=== PATIENT | female | born 1990 | race Caucasian/White ===

== ENCOUNTER 2018-04-20 09:16 | Emergency (ER) | payer BC ==
[2018-04-20 09:30] VITALS: TEMP 98.2
[2018-04-20] MEDS ORDERED: SODIUM CHLORIDE 0.9% 2,000 ML IV STA (09:49)
[2018-04-20] MEDS ORDERED: ONDANSETRON 4 MG/2 ML VIAL IVP STA (09:49)
[2018-04-20 10:42] LABS: Basophils % (A) 0 %; Eosinophils # (A) 0.2 k/uL (0-0.7); Eosinophils % (A) 1 %; HCT 44.5 % (34.0-46.0); Lymphocytes # (A) 0.4 k/uL (1.0-4.8); Lymphocytes % (A) 3 %; MCHC 33.8 g/dL (31.0-37.0); MCV 88.9 fL (80.0-100.0); Mean Platelet Volume 6.4; Monocytes # (A) 0.3 k/uL (0-1.0); Monocytes % (A) 2 %; Neutrophils # (A) 13.8 k/uL (1.3-7.7); Neutrophils % (A) 93 %; Platelet Count 252 k/uL (150-450); RBC 5.01 m/uL (3.80-5.40); RDW 13.3 % (11.5-15.5); WBC 14.8 k/uL (3.8-10.6)
[2018-04-20] MEDS ORDERED: METOCLOPRAMIDE 5 MG/ML 2 ML VIAL IVP STA (10:46)
[2018-04-20] MEDS ORDERED: diphenhydrAMINE 50 MG/ML 1 ML VIAL IVP STA (10:46)
[2018-04-20 10:56] LABS: ALT 33 U/L (9-52); AST 26 U/L (14-36); Albumin 3.8 g/dL (3.5-5.0); Alkaline Phosphatase 23 U/L (38-126); Amylase 37 U/L (30-110); Anion Gap 9 mmol/L; Blood Urea Nitrogen 13 mg/dL (7-17); Calcium 8.9 mg/dL (8.4-10.2); Carbon Dioxide 22 mmol/L (22-30); Chloride 107 mmol/L (98-107); Glucose 95 mg/dL (74-99); Lipase 66 U/L (23-300); Potassium 4.8 mmol/L (3.5-5.1); Sodium 138 mmol/L (137-145); Total Bilirubin 0.7 mg/dL (0.2-1.3); Total Protein 6.5 g/dL (6.3-8.2)
[2018-04-20 10:57] LABS: Appearance,Urine Clear (Clear); Bilirubin,Urine Negative (Negative); Blood,Urine Negative (Negative); Color,Urine Yellow; Glucose,Urine (UA) Negative (Negative); Ketones,Urine Negative (Negative); Leukocyte Esterase,Urine Negative (Negative); Nitrite,Urine Negative (Negative); Protein,Urine Negative (Negative); Specific Gravity,Urine 1.015 (1.001-1.035); Urobilinogen,Urine <2.0 mg/dL (<2.0)
[2018-04-20 11:04] VITALS: BP 118/78; PULSE 80; RESP 18
--- NOTE | 2018-04-20 11:07 | ED ---
Nausea/Vomiting/Diarrhea HPI - General Chief complaint: Nausea/Vomiting/Diarrhea Stated complaint: vomiting Time Seen by Provider: 04/20/18 09:49 Source: patient, RN notes reviewed Mode of arrival: ambulatory Limitations: no limitations - History of Present Illness Initial comments: 28-year-old female presents emergency Department with chief complaint of nausea vomiting. Patient that she woke up this morning nearly had to vomit. Patient complains of upper abdominal pain secondary to her vomiting. Patient also cleanser headache that started after the vomiting. Patient any chest pain or shortness of breath. Patient denies any contacts with some her symptoms no diarrhea at this time no dysuria no hematuria. Denies any chance . - Related Data Previous Rx's Medication Instructions Recorded Ondansetron Odt [Zofran Odt] 4 mg PO Q8HR PRN #10 tab 04/20/18 Allergies Allergy/AdvReac Type Severity Reaction Status Date / Time hydromorphone [From Dilaudid] AdvReac Vomiting Verified 04/20/18 09:30 Review of Systems ROS Statement: Those systems with pertinent positive or pertinent negative responses have been documented in the HPI. ROS Other: All systems not noted in ROS Statement are negative. Past Medical History Additional Past Medical History / Comment(s): OCD History of Any Multi-Drug Resistant Organisms: None Reported Past Surgical History: Breast Surgery, Orthopedic Surgery Additional Past Surgical History / Comment(s): vaginal tumor removal, breast tumor removal Past Psychological History: Anxiety, Depression Smoking Status: Never smoker Past Alcohol Use History: Occasional Past Drug Use History: None Reported General Exam Limitations: no limitations General appearance: alert, in no apparent distress Head exam: Present: atraumatic, normocephalic, normal inspection Eye exam: Present: normal appearance, PERRL, EOMI. Absent: scleral icterus, conjunctival injection, periorbital swelling Respiratory exam: Present: normal lung sounds bilaterally. Absent: respiratory distress, wheezes, rales, rhonchi, stridor Cardiovascular Exam: Present: regular rate, normal rhythm, normal heart sounds. Absent: systolic murmur, diastolic murmur, rubs, gallop, clicks GI/Abdominal exam: Present: soft, tenderness (Epigastric), normal bowel sounds. Absent: distended, guarding, rebound, rigid Back exam: Absent: CVA tenderness (R), CVA tenderness (L) Skin exam: Present: warm, dry, intact, normal color. Absent: rash Course Vital Signs 04/20/18 04/20/18 09:27 11:03 Temperature 98.2 F Pulse Rate 115 H 80 Respiratory 20 18 Rate Blood Pressure 110/68 118/78 O2 Sat by Pulse 98 99 Oximetry Medical Decision Making - Medical Decision Making 28-year-old female presented for nausea vomiting. Patient was hydrated, given antiemetics and symptoms have improved. Patient states that her abdominal pain has resolved. Patient updated on lab results. Return parameters were discussed - Lab Data Result diagrams: 04/20/18 10:00 04/20/18 10:00 Lab Results 04/20/18 04/20/18 04/20/18 Range/Units 10:00 10:00 10:00 WBC 14.8 H (3.8-10.6) k/uL RBC 5.01 (3.80-5.40) m/uL Hgb 15.0 (11.4-16.0) gm/dL Hct 44.5 (34.0-46.0) % MCV 88.9 (80.0-100.0) fL MCH 30.0 (25.0-35.0) pg MCHC 33.8 (31.0-37.0) g/dL RDW 13.3 (11.5-15.5) % Plt Count 252 (150-450) k/uL Neutrophils % 93 % Lymphocytes % 3 % Monocytes % 2 % Eosinophils % 1 % Basophils % 0 % Neutrophils # 13.8 H (1.3-7.7) k/uL Lymphocytes # 0.4 L (1.0-4.8) k/uL Monocytes # 0.3 (0-1.0) k/uL Eosinophils # 0.2 (0-0.7) k/uL Basophils # 0.0 (0-0.2) k/uL Sodium 138 (137-145) mmol/L Potassium 4.8 (3.5-5.1) mmol/L Chloride 107 (98-107) mmol/L Carbon Dioxide 22 (22-30) mmol/L Anion Gap 9 mmol/L BUN 13 (7-17) mg/dL Creatinine 0.73 (0.52-1.04) mg/dL Est GFR (CKD-EPI)AfAm >90 (>60 ml/min/1.73 sqM) Est GFR (CKD-EPI)NonAf >90 (>60 ml/min/1.73 sqM) Glucose 95 (74-99) mg/dL Calcium 8.9 (8.4-10.2) mg/dL Total Bilirubin 0.7 (0.2-1.3) mg/dL AST 26 (14-36) U/L ALT 33 (9-52) U/L Alkaline Phosphatase 23 L (38-126) U/L Total Protein 6.5 (6.3-8.2) g/dL Albumin 3.8 (3.5-5.0) g/dL Amylase 37 (30-110) U/L Lipase 66 (23-300) U/L Urine Color Yellow Urine Appearance Clear (Clear) Urine pH 8.0 (5.0-8.0) Ur Specific [place] 1.015 (1.001-1.035) Urine Protein Negative (Negative) Urine Glucose (UA) Negative (Negative) Urine Ketones Negative (Negative) Urine Blood Negative (Negative) Urine Nitrite Negative (Negative) Urine Bilirubin Negative (Negative) Urine Urobilinogen <2.0 (<2.0) mg/dL Ur Leukocyte Esterase Negative (Negative) Urine HCG, Qual (Not Detectd) 04/20/18 Range/Units 10:00 WBC (3.8-10.6) k/uL RBC (3.80-5.40) m/uL Hgb (11.4-16.0) gm/dL Hct (34.0-46.0) % MCV (80.0-100.0) fL MCH (25.0-35.0) pg MCHC (31.0-37.0) g/dL RDW (11.5-15.5) % Plt Count (150-450) k/uL Neutrophils % % Lymphocytes % % Monocytes % % Eosinophils % % Basophils % % Neutrophils # (1.3-7.7) k/uL Lymphocytes # (1.0-4.8) k/uL Monocytes # (0-1.0) k/uL Eosinophils # (0-0.7) k/uL Basophils # (0-0.2) k/uL Sodium (137-145) mmol/L Potassium (3.5-5.1) mmol/L Chloride (98-107) mmol/L Carbon Dioxide (22-30) mmol/L Anion Gap mmol/L BUN (7-17) mg/dL Creatinine (0.52-1.04) mg/dL Est GFR (CKD-EPI)AfAm (>60 ml/min/1.73 sqM) Est GFR (CKD-EPI)NonAf (>60 ml/min/1.73 sqM) Glucose (74-99) mg/dL Calcium (8.4-10.2) mg/dL Total Bilirubin (0.2-1.3) mg/dL AST (14-36) U/L ALT (9-52) U/L Alkaline Phosphatase (38-126) U/L Total Protein (6.3-8.2) g/dL Albumin (3.5-5.0) g/dL Amylase (30-110) U/L Lipase (23-300) U/L Urine Color Urine Appearance (Clear) Urine pH (5.0-8.0) Ur Specific [place] (1.001-1.035) Urine Protein (Negative) Urine Glucose (UA) (Negative) Urine Ketones (Negative) Urine Blood (Negative) Urine Nitrite (Negative) Urine Bilirubin (Negative) Urine Urobilinogen (<2.0) mg/dL Ur Leukocyte Esterase (Negative) Urine HCG, Qual Not Detected (Not Detectd) Disposition Clinical Impression: Gastroenteritis Disposition: HOME SELF-CARE Condition: Stable Instructions (If sedation given, give patient instructions): Acute Nausea and Vomiting (ED) Additional Instructions: Please return to the Emergency Department if symptoms worsen or any other co ncerns. Prescriptions: Ondansetron Odt [Zofran Odt] 4 mg PO Q8HR PRN #10 tab PRN Reason: Nausea Is patient prescribed a controlled substance at d/c from ED?: No Referrals: Carlo Diaz MD [Primary Care Provider] - 1-2 days Time of Disposition: 11:33
== END 2018-04-20 12:03 | disposition home or self-care (01) ==
LOC: EC 09:16
DX: K52.9 Noninfective gastroenteritis and colitis, unspecified (principal); Z88.5 Allergy status to narcotic agent
CPT/HCPCS: 36415; 80053; 82150; 83690; 85025; 81003; 81025; 99284; 96374; 96375 ×2; 96361 ×2; J1200; J2765; J2405

== ENCOUNTER 2018-11-22 20:49 | Inpatient (IN) | payer BC ==
[2018-11-22 21:55] LABS: Amphetamine Screen,Urine Not Detected (NotDetected); Barbiturate Screen,Urine Not Detected (NotDetected); Benzodiazepines Screen,Urine Detected (NotDetected); Cocaine Screen,Urine Not Detected (NotDetected); Methadone Screen, Urine Not Detected (NotDetected); Opiate Screen,Urine Not Detected (NotDetected); Oxycodone Screen, Urine Not Detected (NotDetected); Phencyclidine Screen,Urine Not Detected (NotDetected); Tricyclic Antidepressant,Urine Not Detected (NotDetected); Urn Cannabinoid Scrn Not Detected (NotDetected)
[2018-11-22] MEDS ORDERED: ALPRAZolam 1 MG TAB PO STA (21:55)
--- NOTE | 2018-11-22 21:56 | ED ---
General Adult HPI - General Chief complaint: Psychiatric Symptoms Stated complaint: Mental health Time Seen by Provider: 11/22/18 21:09 Source: patient Mode of arrival: ambulatory Limitations: no limitations - History of Present Illness Initial comments: Dictation was produced using [employer] dictation software. please excuse any grammatical, word or spelling errors. Chief Complaint: 28-year-old female with extensive psychiatric history presents with depression and suicidal ideation. History of Present Illness: 28-year-old female with extensive history of depression since the age of 6 presents with depression. Patient states she's been having worsening depression over the last several days. Patient states she suicidal however reports that she would never harm herself because she sees how it can affect peoples families. Patient denies any medical complaints at this time. Patient states she has been seen by multiple psychiatrists and has undergone extensive therapy for her depression. She states that she's been taken off her medications. She is a long history of multiple medications. Last treatment was Cymbalta however she was taken off because it was felt that her depression acutely worsened. Patient denies any chance of . She states she is depressed however for no particular reason. The ROS documented in this emergency department record has been reviewed and confirmed by me. Those systems with pertinent positive or negative responses have been documented in the HPI. All other systems are other negative and/or noncontributory. PHYSICAL EXAM: General Impression: Alert and oriented x3, not in acute distress HEENT: Normocephalic atraumatic, extra-ocular movements intact, pupils equal and reactive to light bilaterally, mucous membranes moist. Cardiovascular: Heart regular rate and rhythm, S1&S2 audible, no murmurs, rubs or gallops Chest: Lungs clear to auscultation bilaterally, no rhonchi, no wheeze, no rales Abdomen: Bowel sounds present, abdomen soft, non-tender, non-distended, no organomegaly Musculoskeletal: Pulses present and equal in all extremities, no peripheral e lin Motor: no focal deficits noted Neurological: CN II-XII grossly intact, no focal motor or sensory deficits noted Skin: Intact with no visualized rashes Psych: Tearful ED course: 28-year-old female presents with chief complaint of acute depression. Son's upon arrival are within acceptable limits. Patient states she currently feels anxious. She suicidal however denies any significant intent. She has no medical complaints at this time. Patient medically cleared for EPS evaluation. She feels acutely anxious at the moment. Patient given by mouth alprazolam.Urine hCG is negative. Patient is medically cleared for EPS evaluation. EPS evaluated patient and recommended inpatient admission. - Related Data Home Medications Medication Instructions Recorded Confirmed Cholecalciferol [Vitamin D3 (25 5,000 unit PO DAILY 11/22/18 11/23/18 Mcg = 1000 Iu)] Citalopram Hydrobromide [CeleXA] 30 mg PO DAILY 11/22/18 11/23/18 Gabapentin [Neurontin] 600 mg PO DAILY@1200 11/22/18 11/23/18 Gabapentin [Neurontin] 900 mg PO BID 11/22/18 11/23/18 Hum Nutrition B12 Turbo 1 tab PO DAILY 11/22/18 11/23/18 Hum Nutrition Base Control 1 tab PO DAILY 11/22/18 11/23/18 Hum Nutrition Daily Cleanse 2 tab PO DAILY 11/22/18 11/23/18 Hum Nutrition [employer] 2 tab PO DAILY 11/22/18 11/23/18 Levothyroxine Sodium [Synthroid] 125 mcg PO DAILY 11/22/18 11/23/18 Prochlorperazine [Compazine] 5 mg PO Q8HR PRN 11/22/18 11/23/18 ZOLMitriptan 5 - 10 mg PO DAILY PRN 11/22/18 11/23/18 busPIRone HCl [Buspar] 5 mg PO DAILY 11/22/18 11/23/18 Allergies Allergy/AdvReac Type Severity Reaction Status Date / Time shellfish derived [Shellfish] Allergy Swelling Verified 11/23/18 01:36 hydromorphone [From Dilaudid] AdvReac Vomiting Verified 11/23/18 01:36 Review of Systems ROS Statement: Those systems with pertinent positive or pertinent negative responses have been documented in the HPI. ROS Other: All systems not noted in ROS Statement are negative. Past Medical History Additional Past Medical History / Comment(s): OCD History of Any Multi-Drug Resistant Organisms: None Reported Past Surgical History: Breast Surgery, Orthopedic Surgery Additional Past Surgical History / Comment(s): vaginal tumor removal, breast tumor removal Past Psychological History: Anxiety, Depression Smoking Status: Never smoker Past Alcohol Use History: Occasional Past Drug Use History: None Reported General Exam Limitations: no limitations Course Vital Signs 11/22/18 20:59 Temperature 97.9 F Pulse Rate 73 Respiratory 18 Rate Blood Pressure 118/85 O2 Sat by Pulse 98 Oximetry Medical Decision Making - Lab Data Lab Results 11/22/18 11/22/18 Range/Units 21:11 21:11 Urine HCG, Qual Not Detected (Not Detectd) Urine Opiates Screen Not Detected (NotDetected) Ur Oxycodone Screen Not Detected (NotDetected) Urine Methadone Screen Not Detected (NotDetected) Ur Propoxyphene Screen Not Detected (NotDetected) Ur Barbiturates Screen Not Detected (NotDetected) U Tricyclic Antidepress Not Detected (NotDetected) Ur Phencyclidine Scrn Not Detected (NotDetected) Ur Amphetamines Screen Not Detected (NotDetected) U Methamphetamines Scrn Not Detected (NotDetected) U Benzodiazepines Scrn Detected H (NotDetected) Urine Cocaine Screen Not Detected (NotDetected) U Marijuana (THC) Screen Not Detected (NotDetected) Disposition Clinical Impression: Psychosis Disposition: ADMITTED IP TO THIS [facility] Condition: Fair Decision Time: 02:25
[2018-11-23 00:04] VITALS: RESP 16
[2018-11-23] MEDS ORDERED: ACETAMINOPHEN TAB 325 MG TAB PO PRN (06:15)
[2018-11-23] MEDS ORDERED: MAG HYDROX/AL HYDROX/SIMETH 30 ML CUP PO PRN (06:15)
[2018-11-23] MEDS ORDERED: MAGNESIUM HYDROXIDE 2,400 MG/10 ML CUP PO PRN (06:15)
[2018-11-23 08:09] LABS: Basophils # (A) 0.1 k/uL (0-0.2); Basophils % (A) 1 %; Eosinophils # (A) 0.2 k/uL (0-0.7); Eosinophils % (A) 2 %; HCT 44.8 % (34.0-46.0); HGB 15.1 gm/dL (11.4-16.0); Lymphocytes # (A) 2.9 k/uL (1.0-4.8); Lymphocytes % (A) 33 %; MCH 31.4 pg (25.0-35.0); MCHC 33.7 g/dL (31.0-37.0); MCV 93.2 fL (80.0-100.0); Mean Platelet Volume 5.5; Monocytes # (A) 0.4 k/uL (0-1.0); Monocytes % (A) 5 %; Neutrophils % (A) 58 %; Platelet Count 276 k/uL (150-450); RBC 4.81 m/uL (3.80-5.40); RDW 12.9 % (11.5-15.5); WBC 8.7 k/uL (3.8-10.6)
--- NOTE | 2018-11-23 11:41 | P.HP ---
Psychiatric H&P - . History & Physical: Allergies Allergy/AdvReac Type Severity Reaction Status Date / Time shellfish derived [Shellfish] Allergy Swelling Verified 11/23/18 01:36 hydromorphone [From Dilaudid] AdvReac Vomiting Verified 11/23/18 01:36 Vital Signs Temp 99.2 F 11/22/18 23:57 Pulse 68 11/22/18 23:57 Resp 16 11/22/18 23:57 BP 115/82 11/22/18 23:57 Pulse Ox 100 11/22/18 23:57 Intake & Output 11/22/18 11/23/18 11/23/18 18:59 06:59 18:59 Weight 88.451 kg Laboratory Last Values WBC 8.7 k/uL (3.8-10.6) 11/23/18 07:31 RBC 4.81 m/uL (3.80-5.40) 11/23/18 07:31 Hgb 15.1 gm/dL (11.4-16.0) 11/23/18 07:31 Hct 44.8 % (34.0-46.0) 11/23/18 07:31 MCV 93.2 fL (80.0-100.0) 11/23/18 07:31 MCH 31.4 pg (25.0-35.0) 11/23/18 07:31 MCHC 33.7 g/dL (31.0-37.0) 11/23/18 07:31 RDW 12.9 % (11.5-15.5) 11/23/18 07:31 Plt Count 276 k/uL (150-450) 11/23/18 07:31 Neutrophils % 58 % 11/23/18 07:31 Lymphocytes % 33 % 11/23/18 07:31 Monocytes % 5 % 11/23/18 07:31 Eosinophils % 2 % 11/23/18 07:31 Basophils % 1 % 11/23/18 07:31 Neutrophils # 5.0 k/uL (1.3-7.7) 11/23/18 07:31 Lymphocytes # 2.9 k/uL (1.0-4.8) 11/23/18 07:31 Monocytes # 0.4 k/uL (0-1.0) 11/23/18 07:31 Eosinophils # 0.2 k/uL (0-0.7) 11/23/18 07:31 Basophils # 0.1 k/uL (0-0.2) 11/23/18 07:31 Sodium Cancelled 11/23/18 07:31 Potassium Cancelled 11/23/18 07:31 Chloride Cancelled 11/23/18 07:31 Carbon Dioxide Cancelled 11/23/18 07:31 Anion Gap Cancelled 11/23/18 07:31 BUN Cancelled 11/23/18 07:31 Creatinine Cancelled 11/23/18 07:31 Est GFR (CKD-EPI)AfAm Cancelled 11/23/18 07:31 Est GFR (CKD-EPI)NonAf Cancelled 11/23/18 07:31 Glucose Cancelled 11/23/18 07:31 Calcium Cancelled 11/23/18 07:31 Total Bilirubin Cancelled 11/23/18 07:31 Conjugated Bilirubin Cancelled 11/23/18 07:31 Unconjugated Bilirubin Cancelled 11/23/18 07:31 Delta Bilirubin Cancelled 11/23/18 07:31 AST Cancelled 11/23/18 07:31 ALT Cancelled 11/23/18 07:31 Alkaline Phosphatase Cancelled 11/23/18 07:31 Total Protein Cancelled 11/23/18 07:31 Albumin Cancelled 11/23/18 07:31 Triglycerides Cancelled 11/23/18 07:31 Cholesterol Cancelled 11/23/18 07:31 LDL Cholesterol, Calc Cancelled 11/23/18 07:31 HDL Cholesterol Cancelled 11/23/18 07:31 TSH 0.351 mIU/L (0.465-4.680) L 11/23/18 07:31 Urine HCG, Qual Not Detected (Not Detectd) 11/22/18 21:11 Urine Opiates Screen Not Detected (NotDetected) 11/22/18 21:11 Ur Oxycodone Screen Not Detected (NotDetected) 11/22/18 21:11 Urine Methadone Screen Not Detected (NotDetected) 11/22/18 21:11 Ur Propoxyphene Screen Not Detected (NotDetected) 11/22/18 21:11 Ur Barbiturates Screen Not Detected (NotDetected) 11/22/18 21:11 U Tricyclic Antidepress Not Detected (NotDetected) 11/22/18 21:11 Ur Phencyclidine Scrn Not Detected (NotDetected) 11/22/18 21:11 Ur Amphetamines Screen Not Detected (NotDetected) 11/22/18 21:11 U Methamphetamines Scrn Not Detected (NotDetected) 11/22/18 21:11 U Benzodiazepines Scrn Detected (NotDetected) H 11/22/18 21:11 Urine Cocaine Screen Not Detected (NotDetected) 11/22/18 21:11 U Marijuana (THC) Screen Not Detected (NotDetected) 11/22/18 21:11 11/23/18 11:39 Chief complaint Severe depression and anxiety History of presenting illness Reports being brought to the hospital by her parents as she was very depressed. She reports crying a lot, unable to manage her day at school, cant focus, cant create, low motivation, cant think , no energy, no appetite, feeling helpless that no one can help her with her depression and currently rates her depression as 9/10. She claims to have been prescribed multiple medications by various psychiatrists and nothing seems to have worked well for her. She also claims to have been treated with Ketamine infusion in May 2018 at a clinic in [place] which made her suicidal. She says brain scan done on her did not reveal any abnormalities. She says Narco made her feel motivated when she took it for pain . She reports having panic attacks and says anything could bring on her panic attacks. She reports feeling tightness in chest, limbs cringing and mind racing during her panic attacks. She is currently prescribed Celexa 30mg daily, Neurontin 900mg po bid and 600mg po q noon, buspar 5mg po daily, by her psychiatrist through [facility]. She reports being startedd on buspar one and weeks ago. She reports being complaint with all her medicationsas prescribed with no relief of her symptoms. She also reports taking zolmitriptan for migraine headaches and klonopin for panic attacks as needed. Levothyroxine 125mcg daily for hypothyroidism. She says her medication dose being lowered recently after her blood tests showed elevated levels. Currently her TSH levels are low at 0.351. Since being hospitalized she reports feeling somewhat better and denies current suicidal or homicidal ideations . She currently reports missing her family and is anxious to get back home. She denies symptoms of psychosis and patricia. Past psychiatric history Reports onset of depression around the age of 11 after she had witnessed one of her farm animal s neck getting caught in a towel rack and dying. She claims to have been diagnosed with depression and being treated with various medications such as Cymbalta : Made her depression worse Paxil, Prozac : stopped working Lexapro; made her depression worse Zoloft, viibryd : Made her throw up Wellbutirn: Made her sweat a lot Effexor: Made her angry, fearful and confused. Geodon: Unable to breathe Abilify: Made her feel more anxious. Seroquel: Gave her restless limb Denies psychiatric hospitalizations. Substance use history Denies Legal problems None reported Family psychiatric treatment history Mother diagnosed with bipolar depression Father diagnosed with depression Medical history Upper back pain, due to torn trapezius muscles Migraine head aches Torn ACL ligaments of the right knee Allergies Dilaudid, shellfish Social history Born in [place], [place]. Raised by both parents. Only child, No history of abuse. 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 for two years and lives with her . No children. Mental status exam 28 year old woman, Mildly obese, appears in fair grooming and hygiene. She is tearful during the interview. Miantains good eye contact. Her spepch and thought process were goal directed. Mood reported as depressed and affect tearful, CONSTRICTED. Denies auditory, visual hallucinations. Not delusional, denies paranoid ideations. Alert and oriented X 4. Denies suicidal or homicidal ideations. Insight and judgement fair. Diagnosis Major depression recurrent type, her recent thyroid dose adjustments might also be affecting her depression Anxiety disorder Plan 28-year-old female admitted emergency department with symptoms of depression. SHe signed voluntary treatment consent. Medicine consult for physical examination psychosocial evaluation. After discussing benefits and risks of medications she has agreed to take WELLBUTRIN . Will start hER on 75mg daily and the dose will titrated as tolerated and responsiveness. Will also start her on [id number] po qhs as she says neurontin is not helping her with anxiety. She will be started back on all her out patient medications Celexa 30mg daily, Neurontin 900mg po bid and 600mg po q noon, buspar 5mg po daily. Will increase buspar dose to 5mg po tid. continue her levothyroxine. Monitor for symptoms will receive milieu therapy group therapy individual therapy occupational therapy recreational therapy and medication education. Discharge with outpatient follow-up. Treatment goals: Medication stabilization of depression and anxiety
[2018-11-23] MEDS: CITALOPRAM HYDROBROMIDE 10 MG TAB PO SCH (11:43)
[2018-11-23 12:12] VITALS: BMI 33.5
[2018-11-23] MEDS ORDERED: LORazepam 2 MG/ML INJ IM PRN (13:23)
[2018-11-23] MEDS ORDERED: ZIPRASIDONE 20 MG VIAL IM PRN (13:25)
--- NOTE | 2018-11-23 13:32 | P.HPMEDMHU ---
History of Present Illness H&P Date: 11/23/18 (conulted by: Kurt ) Chief Complaint: consult for MHU HPI Patient is a 28-year-old female with a past with a history of depression, hypothyroidism, migraine headaches, upper back pain as reported due to torn trapezius muscles was admitted to the acute inpatient psychiatry team after presenting to the ER with chief complaint of worsening depression. Patient reports increase difficulty with focusing she's been unable to complete her last credits for college secondary to severe depression, she reports low motivation, decreased appetite and poor sleep. Medically The patient reports to receiving monthly IV infusions for her migraine headaches and currently denies any of this time, she does report upper back spasms. She reports compliance with all of her antidepressant medications. In the ER showed a UDS was positive for benzodiazepines, TSH was 0.35. CBC was unremarkable Review of Systems Pertinent positives per HPI all other review of system is negative Past Medical History Additional Past Medical History / Comment(s): OCD History of Any Multi-Drug Resistant Organisms: None Reported Past Surgical History: Breast Surgery, Orthopedic Surgery Additional Past Surgical History / Comment(s): vaginal tumor removal, breast tumor removal Past Psychological History: Anxiety, Depression Smoking Status: Never smoker Past Alcohol Use History: Occasional Past Drug Use History: None Reported Medications and Allergies Home Medications Medication Instructions Recorded Confirmed Type Cholecalciferol [Vitamin D3 (25 5,000 unit PO DAILY 11/22/18 11/23/18 History Mcg = 1000 Iu)] Citalopram Hydrobromide [CeleXA] 30 mg PO DAILY 11/22/18 11/23/18 History Gabapentin [Neurontin] 600 mg PO DAILY@1200 11/22/18 11/23/18 History Gabapentin [Neurontin] 900 mg PO BID 11/22/18 11/23/18 History Hum Nutrition B12 Turbo 1 tab PO DAILY 11/22/18 11/23/18 History Hum Nutrition Base Control 1 tab PO DAILY 11/22/18 11/23/18 History Hum Nutrition Daily Cleanse 2 tab PO DAILY 11/22/18 11/23/18 History Hum Nutrition [employer] 2 tab PO DAILY 11/22/18 11/23/18 History Levothyroxine Sodium [Synthroid] 125 mcg PO DAILY 11/22/18 11/23/18 History Prochlorperazine [Compazine] 5 mg PO Q8HR PRN 11/22/18 11/23/18 History ZOLMitriptan 5 - 10 mg PO DAILY PRN 11/22/18 11/23/18 History busPIRone HCl [Buspar] 5 mg PO DAILY 11/22/18 11/23/18 History Allergies Allergy/AdvReac Type Severity Reaction Status Date / Time shellfish derived [Shellfish] Allergy Swelling Verified 11/23/18 01:36 hydromorphone [From Dilaudid] AdvReac Vomiting Verified 11/23/18 01:36 Physical Exam Vitals: Vital Signs Temp Pulse Pulse Resp BP BP Pulse Ox 11/22/18 23:57 99.2 F 68 16 115/82 100 11/22/18 20:59 97.9 F 73 18 118/85 98 Intake and Output 11/22/18 11/23/18 11/23/18 22:59 06:59 14:59 Other: Weight 88.451 kg 88.451 kg Constitutional: No acute distress, conversant, pleasant Eyes: Anicteric sclerae, moist conjunctiva, no lid-lag, PERRLA ENMT: NC/AT,Oropharynx clear, no erythema, exudates Neck:Supple, FROM, no masses, or JVD, No carotid bruits; No thyromegaly Lungs: Clear to auscultation, Clear to percussion, Normal respiratory effort, no accessory muscle use Cardiovascular: Heart regular in rate and rhythm, No murmurs, gallops, or rubs no peripheral edema Abdominal: Soft Nontender, nom distended, no guarding, no rebound or rigidity, Normoactive bowel sounds No hepatomegaly, No splenomegaly, No palpable mass No abdominal wall hernia noted Skin: Normal temperature, tone, texture, turgor, No induration No subcutaneous nodules, No rash, lesions, No ulcers Extremities:No digital cyanosis No clubbing, Pedal pulses intact and symmetrical Radial pulses intact and symmetrical Normal gait and station, No calf tenderness Psychiatric: Alert and oriented to person, place and time, flat affect Neuro: Muscles Strength 5/5 in all 4 extremities, Sensation to light touch grossly present throughout, Cranial nerves II-XII grossly intact. No focal sensory deficits Cranial Nerve Examination - Cranial Nerves Cranial Nerve II- Optic: Intact Cranial Nerve III- Oculomotor: Intact Cranial Nerve IV- Trochlear: Intact Cranial Nerve V- Trigeminal: Intact Cranial Nerve - Abducens: Intact Cranial Nerve VII- Facial: Intact Cranial Nerve VIII- Auditory: Intact Cranial Nerve IX- Glossopharyngeal: Intact Cranial Nerve X- Vagus: Intact Cranial Nerve XI- Accessory: Intact Cranial Nerve XII- Hypoglossal: Intact Results CBC & Chem 7: 11/23/18 07:31 10 07:39 Labs: Abnormal Lab Results - Last 24 Hours (Table) 11/22/18 11/23/18 Range/Units 21:11 07:31 TSH 0.351 L (0.465-4.680) mIU/L U Benzodiazepines Scrn Detected H (NotDetected) Thrombosis Risk Factor Assmnt - Choose All That Apply Any of the Below Risk Factors Present?: Yes Each Factor Represents 1 point: Obesity (BMI >25) Other Risk Factors: No Other congenital or acquired thrombophilia - If yes, enter type in comment: No Thrombosis Risk Factor Assessment Total Risk Factor Score: 1 Thrombosis Risk Factor Assessment Level: Low Risk Assessment and Plan (1) Hypothyroidism Current Visit: Yes Status: Acute Code(s): E03.9 - HYPOTHYROIDISM, UNSPECIFIED SNOMED Code(s): 92979705 (2) Migraine headache Current Visit: Yes Status: Acute Code(s): G43.909 - MIGRAINE, UNSP, NOT INTRACTABLE, WITHOUT STATUS MIGRAINOSUS SNOMED Code(s): 11250218 (3) Major depression Current Visit: Yes Status: Acute Code(s): F32.9 - MAJOR DEPRESSIVE DISORDER, SINGLE EPISODE, UNSPECIFIED SNOMED Code(s): 448466068 (4) Anxiety Current Visit: Yes Status: Acute Code(s): F41.9 - ANXIETY DISORDER, UNSPECIFIED SNOMED Code(s): 13827638 (5) Back pain Current Visit: Yes Status: Acute Code(s): M54.9 - DORSALGIA, UNSPECIFIED SNOMED Code(s): 457578916 Plan: Patient admitted to acute inpatient psychiatry team will defer to primary regarding ongoing psychotropic therapies and coordination with cognitive behavioral therapy. Patient is hemodynamically stable, labs indicate abnormal TSH diminished at 0.351 we'll check a reflex T4 and make dose adjustments if needed. Admission labs still partly pending. We'll tentatively sign off there is more abnormal labs. I appreciate the opportunity to be involved in this patient's care. Further questions please do not hesitate to contact us on inpatient team in
[2018-11-23] MEDS: buPROPion SR 100 MG TABLET.ER PO SCH (14:09)
[2018-11-23 14:10] LABS: Hemoglobin A1C 4.7 % (4.0-6.0)
[2018-11-23] MEDS: busPIRone HCl 5 MG TAB PO SCH ×2 (15:25→22:18)
[2018-11-23] MEDS: GABAPENTIN 400 MG CAP PO SCH ×2 (15:26→22:18)
[2018-11-23 19:03] LABS: Appearance,Urine Clear (Clear); Bilirubin,Urine Negative (Negative); Blood,Urine Small (Negative); Color,Urine Yellow; Glucose,Urine (UA) Negative (Negative); Ketones,Urine Negative (Negative); Leukocyte Esterase,Urine Trace (Negative); Mucus,Urine Rare /hpf; Nitrite,Urine Negative (Negative); PH, Urine 5.5 (5.0-8.0); Protein,Urine Negative (Negative); RBC,Urine 3 /hpf (0-5); Specific Gravity,Urine 1.019 (1.001-1.035); Squamous Epithelial Cell,Urine 3 /hpf (0-4); Urobilinogen,Urine <2.0 mg/dL (<2.0); WBC,Urine 3 /hpf (0-5)
[2018-11-23] MEDS ORDERED: GABAPENTIN 400 MG CAP PO SCH (21:00)
[2018-11-23] MEDS: DIVALPROEX ER 250 MG TAB.ER.24H PO SCH (22:18)
[2018-11-23] MEDS: ETHINYL ESTRADIOL PO SCH (22:18)
[2018-11-23] MEDS: LEVONORGESTREL PO SCH (22:18)
[2018-11-23] MEDS: LORazepam 1 MG TAB PO PRN (22:18)
[2018-11-23 23:36] LABS: Urine Alcohol Negative (Negative); Urine Barbiturate Negative (Negative); Urine Cocaine Negative (Negative); Urine Methadone Negative (Negative); Urine Opiates Negative (Negative); Urine Phencyclidine Negative (Negative)
[2018-11-24] MEDS: LEVOTHYROXINE 125 MCG TAB PO SCH (06:23)
[2018-11-24 08:23] LABS: ALT 21 U/L (9-52); AST 21 U/L (14-36); African American GFR (CKD) >90 (>60 ml/min/1.73 sqM); Albumin 4.5 g/dL (3.5-5.0); Alkaline Phosphatase 29 U/L (38-126); Anion Gap 13 mmol/L; Bilirubin, Delta 0.1 mg/dL (0.0-0.2); Bilirubin,Unconjugated 0.4 mg/dL (0.0-1.1); Blood Urea Nitrogen 9 mg/dL (7-17); Calcium 9.8 mg/dL (8.4-10.2); Carbon Dioxide 21 mmol/L (22-30); Chloride 107 mmol/L (98-107); Cholesterol 237 mg/dL (<200); Glucose 86 mg/dL (74-99); HDL Cholesterol 34 mg/dL (40-60); LDL Cholesterol,Calculated 143 mg/dL (0-99); Non-African American GFR(CKD) 90 (>60 ml/min/1.73 sqM); Potassium 4.3 mmol/L (3.5-5.1); Sodium 141 mmol/L (137-145); Total Bilirubin 0.5 mg/dL (0.2-1.3); Total Protein 7.6 g/dL (6.3-8.2); Triglycerides 298 mg/dL (<150)
[2018-11-24] MEDS: CITALOPRAM HYDROBROMIDE 10 MG TAB PO SCH (08:50)
[2018-11-24] MEDS: buPROPion SR 100 MG TABLET.ER PO SCH (08:50)
[2018-11-24] MEDS: GABAPENTIN 400 MG CAP PO SCH ×3 (08:50→21:16)
[2018-11-24] MEDS: busPIRone HCl 5 MG TAB PO SCH ×3 (08:50→21:16)
--- NOTE | 2018-11-24 11:23 | P.PN ---
Progress Note - Text Progress Note Date: 11/24/18 IDENTIFICATION DATA: 28-year-old female admitted through emergency department with symptoms of depression. INTERVAL HISTORY: She reports feeling better today and rates her depression at 6/10, 1 being best. She says her sleep hasnt been that great and attributes it to being hospi talized and having to sleep in a new environment. She says her goal is to go back to her parents farm and to spend time with her farm animals. She wants to spend time with her mother as she finds her mother to be more supportive. She says her parents visited her yesterday evening and feels good about it. She tolerates medications well, no side effects reported. Reports good appetite. Has been going to all her groups and is able to stay focused in the groups. MENTAL STATUS EXAMINATION: 28 year old woman, appears her stated age in fair grooming and hygiene. Maintains good eye contact. Speech and thought process are linear and goal directed. The patient is alert and oriented 4. Mood is reported as better and affect is constricted. thought content is negative for suicidal or homicidal i deation. Denies auditory, visual hallucination. No paranoid ideations. insight and judgment are improving. ASSESSMENT Major depression recurrent type. Anxiety disorder PLAN: Continue WELLBUTRIN 100mg daily and the dose to be titrated as tolerated as she says celexa hasnt been helping her with her depression. [id number] po qhs as she says neurontin is not helping her with anxiety. Celexa 30mg daily, Neurontin 900mg po tid buspar dose to 5mg po tid and levothyroxine. Due to the concerns of serotonin syndrome she was started on wellbutrin Patient continues to meet requirement for inpatient treatment of her depression and anxiety
[2018-11-24] MEDS: CYCLOBENZAPRINE 5 MG TAB PO PRN (15:02)
[2018-11-24] MEDS: DIVALPROEX ER 250 MG TAB.ER.24H PO SCH (21:16)
[2018-11-24] MEDS: LEVONORGESTREL PO SCH (21:16)
[2018-11-24] MEDS: ETHINYL ESTRADIOL PO SCH (21:16)
[2018-11-24] MEDS: LORazepam 1 MG TAB PO PRN (21:18)
[2018-11-25] MEDS: LEVOTHYROXINE 125 MCG TAB PO SCH (06:54)
[2018-11-25] MEDS: busPIRone HCl 5 MG TAB PO SCH (08:29)
[2018-11-25] MEDS: GABAPENTIN 400 MG CAP PO SCH ×3 (08:29→21:07)
[2018-11-25] MEDS: CITALOPRAM HYDROBROMIDE 10 MG TAB PO SCH (08:29)
[2018-11-25] MEDS: buPROPion SR 100 MG TABLET.ER PO SCH (08:29)
--- NOTE | 2018-11-25 11:56 | P.PN ---
Progress Note - Text Interval history: The patient is found in the hallway she follows me to an interview room. She states that she is doing better she is having no suicidal thoughts. She indicates she did not present with any suicidal thoughts. We reviewed the EPS assessment and she refutes information on that form. She states that she typically has difficulty sleeping. Appetite is stable she has been attending groups. She described herself as having refractory depression. She has been on numerous psychotropic medications. Since being here she was started on Wellbutrin SR Depakote and was continued on her BuSpar Celexa and Neurontin. We discussed the Depakote and she finds no benefit from it so far. There is no history of bipolar illness she is reporting no mood swings or irritability. We discussed titrating the BuSpar further for anxiety symptoms and she is agreeable. We discussed changing the Wellbutrin to the XL formulation and increasing to 150 mg in the morning. She has previously been on the Wellbutrin and has no history of seizures. She states that she would like to be discharged as soon as possible. We discussed needing to fully evaluate her and also arranging a support meeting and she is agreeable. Mental status exam: The patient is alert she seated calmly in the chair hygiene grooming are good she is pleasant and cooperative. She maintains a constricted affect. She endorsed feeling sad and depressed upon presentation but she feels better she is feeling more hopeful. She is reporting no suicidal ideation intent or plan. She is reporting no symptoms of psychosis. She demonstrates no evidence of psychosis hypomania or patricia. She demonstrates no involuntary repetitive movements. Insight and judgment improving. Plan: The patient will continue on the Celexa and Neurontin is written. We will discontinue the Depakote. BuSpar will be increased to 10 mg 3 times daily we will change the Wellbutrin to the XL formulation 150 mg in the morning. Social work will be asked to arrange a support meeting. We will monitor the patient for safety and encourage participation in the milieu. Vital signs reviewed.
[2018-11-25] MEDS: busPIRone HCl 10 MG TAB PO SCH ×2 (15:22→21:07)
[2018-11-25] MEDS: CYCLOBENZAPRINE 5 MG TAB PO PRN (17:08)
[2018-11-25] MEDS: ETHINYL ESTRADIOL PO SCH (21:07)
[2018-11-25] MEDS: LEVONORGESTREL PO SCH (21:07)
[2018-11-26] MEDS: LEVOTHYROXINE 125 MCG TAB PO SCH (06:40)
[2018-11-26 06:59] VITALS: BP 110/68; PULSE 93; TEMP 98.8
[2018-11-26] MEDS: CITALOPRAM HYDROBROMIDE 10 MG TAB PO SCH (07:56)
[2018-11-26] MEDS: busPIRone HCl 10 MG TAB PO SCH (07:56)
[2018-11-26] MEDS: GABAPENTIN 400 MG CAP PO SCH (07:57)
[2018-11-26] MEDS ORDERED: buPROPion XL 150 MG TAB.ER.24H PO SCH (09:00)
[2018-11-26] MEDS: CYCLOBENZAPRINE 5 MG TAB PO PRN (10:02)
--- NOTE | 2018-11-26 11:06 | P.DS ---
Providers Date of admission: 11/22/18 22:57 Expected date of discharge: 11/26/18 Attending physician: Eligio Mejia Consults: 11/23/18 06:15 Consult Physician Routine Consulting Provider: Roxanne Redd Consult Reason/Comments: H & P and medical managment Do you want consulting provider notified?: Already Contacted Primary care physician: Carlo Diaz - Discharge Diagnosis(es) (1) Major depressive disorder, recurrent severe without psychotic features Current Visit: Yes Status: Acute Priority: High (2) Anxiety Current Visit: Yes Status: Acute Priority: Medium Hospital Course: Brief summary of admission note: This patient is a 28-year-old female who was admitted to the mental health unit as she was noted to be very depressed frequently crying and was describing decreased concentration and decreased motivation low energy. She presented stating she has been tried on numerous psychotropic medications in the past including ketamine. She was initially seen by Dr. Hicks, please refer to her psychiatric evaluation dated 11/23/2018. Summary of hospital course: The patient was admitted to the mental health unit voluntarily. She was initially seen by Dr. Hicks and I assume care of the patient beginning yesterday. Yesterday the patient indicated that she did not in fact have any true suicidal ideation but is felt overwhelmed. She is happy to report that her has been attentive and has been supportive during her stay here. We re-added Wellbutrin using the XL formulation 150 mg in the morning BuSpar was increased to 10 mg 3 times a day she was continued on her Celexa 30 mg daily and her previously prescribed Neurontin. She has been compliant in attending groups. She is demonstrated no behavioral issues. She is reported no suicidal ideation during this hospitalization. She is going to participate in a support meeting involving her this morning. We discussed coping skill development and she indicates are several things that she can change to assist with her mood. Specifically she states she wants to begin exercising she wants to begin sewing again and is hoping to attend theater group with her in the evenings. Also she states she is willing to work with an individual therapist on a weekly basis. Mental status exam: The patient is alert she is dressed in her own clothing hygi chris grooming are good. Speech is fluent spontaneous nonpressured. She indicates her mood is good. Affect is euthymic and congruent to reported mood. She is reporting no suicidal or homicidal ideation intent or plan. She is reporting no auditory or visual hallucinations or any specific delusions. There is no observed evidence of psychosis. She demonstrates no tangential thinking loose associations or flight of ideas, she does not appear hypomanic or manic. He demonstrates no verbal or physical aggressiveness. She demonstrates no involuntary repetitive movements. She remains oriented to person place and date. She describes several examples of future oriented thinking. Impressions 1. Major depressive disorder recurrent severe without psychosis, anxiety unspecified Plan: The patient will be discharged from the mental health unit today to return home residing with her following a successful support meeting. She will continue on Celexa 30 mg daily, BuSpar 10 mg 3 times daily, Wellbutrin XL 150 mg in the morning. She will continue on the Neurontin as previously prescribed. At this time there is no imminent safety risk she is appropriate for transition back to outpatient care. She strongly encouraged to comply with weekly psychotherapy sessions. She is instructed to return to the hospital with any acute safety concerns. She has denied any use of substances and she is encouraged to continue abstaining from them. Patient Condition at Discharge: Stable Plan - Discharge Summary New Discharge Prescriptions: New busPIRone HCl [Buspar] 10 mg PO TID #45 tab Cyclobenzaprine [Flexeril] 5 mg PO TID PRN tab PRN Reason: Muscle Spasm Oral Contraceptive 1 tab PO HS buPROPion XL [Wellbutrin XL] 150 mg PO DAILY #30 tab.er.24h Continue ZOLMitriptan 5 - 10 mg PO DAILY PRN PRN Reason: Migraine Headache Prochlorperazine [Compazine] 5 mg PO Q8HR PRN PRN Reason: Nausea Cholecalciferol [Vitamin D3 (25 Mcg = 1000 Iu)] 5,000 unit PO DAILY Gabapentin [Neurontin] 600 mg PO DAILY@1200 Levothyroxine Sodium [Synthroid] 125 mcg PO DAILY Citalopram Hydrobromide [CeleXA] 30 mg PO DAILY #45 tab Discontinued Hum Nutrition Base Control 1 tab PO DAILY Hum Nutrition [employer] 2 tab PO DAILY Hum Nutrition Daily Cleanse 2 tab PO DAILY busPIRone HCl [Buspar] 5 mg PO DAILY Gabapentin [Neurontin] 900 mg PO BID Hum Nutrition B12 Turbo 1 tab PO DAILY Discharge Medication List Cholecalciferol [Vitamin D3 (25 Mcg = 1000 Iu)] 5,000 unit PO DAILY 11/22/18 [History] Gabapentin [Neurontin] 600 mg PO DAILY@1200 11/22/18 [History] Levothyroxine Sodium [Synthroid] 125 mcg PO DAILY 11/22/18 [History] Prochlorperazine [Compazine] 5 mg PO Q8HR PRN 11/22/18 [History] ZOLMitriptan 5 - 10 mg PO DAILY PRN 11/22/18 [History] Citalopram Hydrobromide [CeleXA] 30 mg PO DAILY #45 tab 11/26/18 [Rx] Cyclobenzaprine [Flexeril] 5 mg PO TID PRN tab 11/26/18 [Rx] Oral Contraceptive 1 tab PO HS 11/26/18 [Rx] buPROPion XL [Wellbutrin XL] 150 mg PO DAILY #30 tab.er.24h 11/26/18 [Rx] busPIRone HCl [Buspar] 10 mg PO TID #45 tab 11/26/18 [Rx] Follow up Appointment(s)/Referral(s): [facility] [Other] - 12/02/18 1:20 pm (Appointment w/ Marielle Ramos. Please arrive at 12:50 to complete paperwork. Call to confirm appointment or it will be canceled.) Carlo Diaz MD [Primary Care Provider] - 1-2 days Patient Instructions/Handouts: Depression (DC), Anxiety (ED) Activity/Diet/Wound Care/Special Instructions: Activity and diet as tolerated. No guns or weapons in the home. Refrain from Alcohol and street drugs not prescribed by your physician/s. Take all medications as prescribed, and attend your scheduled follow up appointments for psychiatric after care. If in need of medication refills, please to your primary care physician, or your out patient psychiatric provider. If in crisis please call , or go the nearest ER for an evaluation.
== END 2018-11-26 12:00 | disposition home or self-care (01) | DRG 885 ==
LOC: EC 20:49 → 3MHU 22:57
PROVIDERS: ADMIT Psychiatry & Neurology Psychiatry; ATTEND Psychiatry & Neurology Psychiatry
DX: F33.2 Major depressive disorder, recurrent severe without psychotic features (principal); E03.9 Hypothyroidism, unspecified; F41.0 Panic disorder [episodic paroxysmal anxiety]; F42.9 Obsessive-compulsive disorder, unspecified; S46.319A Strain of muscle, fascia and tendon of triceps, unspecified arm, initial encounter; S83.8X1A Sprain of other specified parts of right knee, initial encounter; G43.909 Migraine, unspecified, not intractable, without status migrainosus; Z79.890 Hormone replacement therapy; Z79.899 Other long term (current) drug therapy; Z88.5 Allergy status to narcotic agent; Z91.013 Allergy to seafood; Z81.8 Family history of other mental and behavioral disorders
CPT/HCPCS: 80053; 80061; 80306; 81001; 81025; 82075; 82248; 83036; 84443; 85025; 99285